=== PATIENT | male | born 1935 | race Caucasian/White ===

== ENCOUNTER 2016-05-30 20:51 | Emergency (ER) | payer MEDICARE ==
[2016-05-30] MEDS ORDERED: ASPIRIN 81 MG TABLET, CHEWABLE PO ONE (20:55)
[2016-05-30] MEDS ORDERED: LIDOCAINE 2% VISCOUS SOLN 20 ML UDCUP PO ONE (22:17)
[2016-05-30] MEDS ORDERED: FAMOTIDINE 20 MG TABLET PO ONE (22:17)
[2016-05-30] MEDS ORDERED: MAG HYDROX/AL HYDROX/SIMETH SUSP 30 ML UDCUP PO ONE (22:17)
--- NOTE | 2016-05-30 22:24 | ER Document Report ---
ED General - General Chief Complaint: Chest Pain Stated Complaint: CHEST PAIN Time seen by provider: 22:00 Mode of Arrival: Ambulatory Information source: Patient, Relative TRAVEL OUTSIDE OF THE [place] IN LAST 30 DAYS: No - HPI Notes: Patient is a pleasant 81-year-old white male presents to emergency department with report of chest pain onset at 1800 after eating at 1700, describing pain is a upper midepigastric discomfort to lower chest discomfort that somewhat radiated off to the left of gradual onset and worsening. The patient states he had an indigestion sensation associated with it, but denied any cough or belching. He reports no dyspnea or diaphoresis or radiation of the pain now the arm or up the neck or through to the back. No vomiting. The patient states he had a transient nausea earlier in the day that was without any associated chest pain. No fever or chills. History of coronary bypass surgery 2012 states that one year ago he had a cardiac catheterization at [facility] which was negative. Patient states no medication changes besides being placed upon amlodipine 10 days ago. Patient reports pain was a maximum 6 out of 10, now down to a 3 out of 10 on arrival. - Related Data Allergies/Adverse Reactions: Sulfa (Sulfonamide Antibiotics) Allergy (Verified 09/08/12 20:30) Past Medical History - Social History Smoking Status: Never Smoker Cigarette use (# per day): No Frequency of alcohol use: None Drug Abuse: None Lives with: Family Family History: Reviewed & Not Pertinent Patient has suicidal ideation: No Patient has homicidal ideation: No Renal/ Medical History: Denies: Hx Peritoneal Dialysis Review of Systems - Review of Systems Notes: REVIEW OF SYSTEMS: CONSTITUTIONAL : Denies fever, chills, or sweats. Denies recent illness. EENT: Denies eye, ear, throat, or mouth pain or symptoms. Denies nasal or sinus congestion or discharge. Denies throat, tongue, or mouth swelling or difficulty swallowing. CARDIOVASCULAR: Denies palpitations or racing or irregular heart beat. Denies ankle edema. RESPIRATORY: Denies cough, cold, or chest congestion. Denies shortness of breath, difficulty breathing, or wheezing. GASTROINTESTINAL: Denies abdominal pain or distention. Denies vomiting, or diarrhea. Denies blood in vomitus, stools, or per rectum. Denies black, tarry stools. Denies constipation. GENITOURINARY: Denies difficulty urinating, painful urination, burning, frequency, blood in urine, or discharge. MUSCULOSKELETAL: Denies back or neck pain or stiffness. Denies joint pain or swelling. SKIN: Denies rash, lesions or sores. HEMATOLOGIC : Denies easy bruising or bleeding. LYMPHATIC: Denies swollen, enlarged glands. NEUROLOGICAL: Denies confusion or altered mental status. Denies passing out or loss of consciousness. Denies dizziness or lightheadedness. Denies headache. Denies weakness or paralysis or loss of use of either side. Denies problems with gait or speech. Denies sensory loss, numbness, or tingling. Denies seizures. PSYCHIATRIC: Denies anxiety or stress. Denies depression, suicidal ideation, or homicidal ideation. ALL OTHER SYSTEMS REVIEWED AND NEGATIVE. Dictation was performed using [employer] voice recognition software Physical Exam - Vital signs Vitals: Temp Pulse Resp BP Pulse Ox 98.1 F 64 18 185/62 H 100 05/30/16 21:10 05/30/16 21:10 05/30/16 21:10 05/30/16 21:10 05/30/16 21:10 - Notes Notes: PHYSICAL EXAMINATION: GENERAL: Well-appearing, well-nourished and in no acute distress. HEAD: Atraumatic, normocephalic. EYES: Pupils equal round and reactive to light, extraocular movements intact, sclera anicteric, conjunctiva are normal. ENT: Nares patent, oropharynx clear without exudates. Moist mucous membranes. NECK: Normal range of motion, supple without lymphadenopathy LUNGS: Breath sounds clear to auscultation bilaterally and equal. No wheezes rales or rhonchi. HEART: Regular rate and rhythm without murmurs ABDOMEN: Soft, nondistended abdomen. No guarding, no rebound. No masses appreciated. Patient reports pain to the midepigastric region on palpation was some radiation through to the lower chest wall left greater than right. There is no bony deformity or crepitance or erythema. Negative Copeland's. Musculoskeletal: Normal range of motion, no pitting or edema. No cyanosis. NEUROLOGICAL: Cranial nerves grossly intact. Normal speech, normal gait. Normal sensory, motor exams PSYCH: Normal mood, normal affect. SKIN: Warm, Dry, normal turgor, no rashes or lesions noted. Course - Re-evaluation Re-evalutation: 05/31/16 07:58 Patient had initial and repeat troponin which were both negative. The patient was given GI cocktail and Pepcid with complete relief of his chest discomfort. There is no evidence for GI bleed, electrolyte imbalance, anemia. Patient denied any significant cough that would fit for pneumonia, but he did report his left-sided chest pain was somewhat pleuritic in nature. A d-dimer was ordered which was elevated. There is no evidence for congestive heart failure. CTA of the chest was ordered which showed no evidence of pulmonary embolus, but the patient did have a 2 cm mass versus scar in the right apex. There is no obvious evidence for pneumonia. There was also some esophageal thickening. Patient was instructed that he needed to follow-up with his regular practitioner for surveillance on the 2 cm mass and for upper endoscopy. I do not feel that the patient's chest pain is related to this mass, but I question esophagitis and/or reflux as a cause for the patient's chest pain. No obvious evidence for acute cardiac ischemia or acute MA. - Vital Signs Vital signs: Temp Pulse Resp BP Pulse Ox 98.1 F 64 21 H 153/58 H 96 05/30/16 23:22 05/30/16 23:22 05/31/16 06:01 05/31/16 06:17 05/31/16 06:16 - Laboratory Result Diagrams: 05/30/16 22:50 05/30/16 23:42 Laboratory results interpreted by me: 05/30/16 05/30/16 05/30/16 22:50 23:42 23:42 WBC 11.0 H Plt Count 148 L Monocytes % (Manual) 18 H Eosinophils % (Manual) 7 H Abs Monocytes (Manual) 2.0 H Absolute Eos (Manual) 0.8 H D-Dimer 1.85 H Potassium 3.4 L Chloride 108 H Glucose 128 H - EKG Interpretation by Ak EKG shows normal: Sinus rhythm Additional EKG results interpreted by ar: 05/30/16 22:22 EKG as interpreted by ar showed normal sinus rhythm a rate of 63. There is left ventricular hypertrophy. There is no gross evidence for acute MA or ischemia. There is a PVC identified. There is no significant change from previous EKG reviewed from 09/08/12. 05/30/16 22:24 Discharge - Discharge Clinical Impression: Esophagitis, Pulmonary mass Chest pain Qualifiers: Chest pain type: unspecified Qualified Code(s): R07.9 - Chest pain, unspecified Condition: Stable Disposition: HOME, SELF-CARE Instructions: Esophagitis ([facility]), Prilosec (Acid Pump Inhibitor) ([facility]) Additional Instructions: Chest Pain of Unclear Cause The exact cause of your chest pain isn't clear. Fortunately, there is no evidence of a dangerous medical condition. Further testing may be required to find the source of the pain. Most often, we find that this pain is coming from the chest wall -- the muscles or rib joints in the chest. But chest pain can come from the lung and lung lining, the esophagus, the heart valves or heart lining, and even the stomach or gallbladder. Rest. Eat lightly until the pain is gone. We may prescribe medicine for pain and inflammation. You should call the physician immediately if the pain radiates to the shoulder, jaw or arms; if you start to run a fever or develop a cough; or if you develop shortness of breath, or other new or alarming symptoms. Follow-up with Dr. Zhang concerning the esophageal thickening where you may need an upper endoscopy to evaluate. Also follow-up with him related to the 2 cm right apex pulmonary scar versus mass. Prescriptions: Omeprazole 20 mg PO DAILY #60 capsule. Referrals: CHRIS BISHOP MD [Primary Care Provider] - Follow up as needed
[2016-05-30 23:10] LABS: HEMOGLOBIN 13.6 g/dL (13.5-17.0); HGB HCT DIFFERENCE -0.2; MEAN CORPUSCULAR HEMOGLOBIN 30.6 pg (27.0-33.4); MEAN CORPUSCULAR HGB CONC 33.2 g/dL (32.0-36.0); MEAN CORPUSCULAR VOLUME 92 fl (80-97); RED BLOOD COUNT 4.45 10^6/uL (4.35-5.55); RED CELL DISTRIBUTION WIDTH 13.8 % (11.5-14.0)
[2016-05-30 23:52] LABS: BASOPHILS % (MANUAL) 1 % (0-2); EOSINOPHILS % (MANUAL) 7 % (0-6); LYMPHOCYTES % (MANUAL) 13 % (13-45); TOTAL CELLS COUNTED 100
[2016-05-30 23:53] LABS: PLATELET CLUMPS PRESENT; RBC MORPHOLOGY COMMENT NORMO-CYTIC/CHROMIC; TOXIC VACUOLATION PRESENT
[2016-05-31] LABS: ALANINE AMINOTRANSFERASE 33 U/L (21-72); ALBUMIN 3.9 g/dL (3.5-5.0); ALKALINE PHOSPHATASE 104 U/L (38-126); ASPARTATE AMINO TRANSFERASE 30 U/L (17-59); BILIRUBIN,DIRECT 0.1 mg/dL (0.0-0.4); BILIRUBIN,TOTAL 0.7 mg/dL (0.2-1.3); BLOOD UREA NITROGEN 20 mg/dL (7-20); CALCIUM 9.1 mg/dL (8.4-10.2); CREATINE KINASE 82 U/L (55-170); CREATININE RESULT 1.07 mg/dL (0.52-1.25); GLUCOSE 128 mg/dL (75-110); POTASSIUM 3.4 mmol/L (3.6-5.0); TOTAL PROTEIN 6.7 g/dL (6.3-8.2)
[2016-05-31 00:12] LABS: CREATINE KINASE MB 0.51 ng/mL (<4.55); TROPONIN I 0.015 ng/mL
[2016-05-31 00:16] LABS: ANION GAP 14 (5-19); CARBON DIOXIDE 23 mmol/L (22-30); CHLORIDE 108 mmol/L (98-107); SODIUM 144.8 mmol/L (137-145)
[2016-05-31 06:20] VITALS: BP 153/58
--- NOTE | 2016-05-31 15:42 | EKG REPORT ---
SEVERITY:- BORDERLINE ECG - SINUS RHYTHM VENTRICULAR PREMATURE COMPLEX LVH BY VOLTAGE : Confirmed by: Ashley Acharya MD 31-May-2016 15:41:33
== END 2016-05-31 06:20 | disposition home or self-care (01) ==
LOC: ER 20:51
DX: K20.9 Esophagitis, unspecified (principal); R91.8 Other nonspecific abnormal finding of lung field; I51.7 Cardiomegaly; R10.13 Epigastric pain; I49.3 Ventricular premature depolarization; Z98.84 Bariatric surgery status; Z79.899 Other long term (current) drug therapy; Z88.2 Allergy status to sulfonamides
CPT/HCPCS: 93005; 99285; 36415; 82553; 82550; 85025; 80053; 84484; 85379; 71010; 71275; 93010; A9270 ×2; J3490

== ENCOUNTER → 2016-12-14 | Outpatient (CLI) | payer MEDICARE ==
[2016-12-14 11:27] LABS: ANION GAP 13 (5-19); BLOOD UREA NITROGEN 21 mg/dL (7-20); CALCIUM 9.2 mg/dL (8.4-10.2); CARBON DIOXIDE 25 mmol/L (22-30); CHLORIDE 105 mmol/L (98-107); CREATININE RESULT 1.19 mg/dL (0.52-1.25); GLUCOSE 204 mg/dL (75-110); POTASSIUM 4.3 mmol/L (3.6-5.0); SODIUM 143.2 mmol/L (137-145)
== END ==
LOC: OD 09:37
PROVIDERS: ATTEND Physician Assistant
DX: N28.9 Disorder of kidney and ureter, unspecified (principal)
CPT/HCPCS: 36415; 80048

== ENCOUNTER 2017-01-12 15:08 | Emergency (ER) | payer MEDICARE ==
--- NOTE | 2017-01-12 15:46 | ER Document Report ---
ED Medical Screen (RME) - General Chief Complaint: Vision Problem Stated Complaint: EYE INJURY Time Seen by Provider: 01/12/17 15:43 Mode of Arrival: Ambulatory Information source: Patient TRAVEL OUTSIDE OF THE [place] IN LAST 30 DAYS: No - HPI Patient complains to provider of: Decreased vision R eye Onset: Just prior to arrival - pt states he woke up with no issues. A short time ago today, he felt "like a curtain was coming down over his R eye." He says it has remained about the same and is painless. - Related Data Allergies/Adverse Reactions: Sulfa (Sulfonamide Antibiotics) Allergy (Verified 01/12/17 15:24) Past Medical History - Social History Chew tobacco use (# tins/day): No Frequency of alcohol use: None Drug Abuse: None - Past Medical History Cardiac Medical History: Reports: Hx Hypertension Renal/ Medical History: Denies: Hx Peritoneal Dialysis Past Surgical History: Reports: Hx Cardiac Surgery Physical Exam - Vital signs Vitals: Temp Pulse Resp BP Pulse Ox 97.6 F 63 16 157/48 H 95 01/12/17 15:23 01/12/17 15:23 01/12/17 15:23 01/12/17 15:23 01/12/17 15:23 Course - Vital Signs Vital signs: Temp Pulse Resp BP Pulse Ox 97.6 F 63 16 157/48 H 95 01/12/17 15:23 01/12/17 15:23 01/12/17 15:23 01/12/17 15:23 01/12/17 15:23
--- NOTE | 2017-01-12 16:21 | RADIOLOGY REPORT (SQ) ---
EXAM DESCRIPTION: CT HEAD WITHOUT COMPLETED DATE/TIME: 01/12/2017 4:09 pm REASON FOR STUDY: R eye vision decrease COMPARISON: None. TECHNIQUE: Axial images acquired through the brain without intravenous contrast. Images reviewed wi th bone, brain and subdural windows. Images stored on PACS. All CT scanners at this facility use dose modulation, iterative reconstruction, and/or weight based d osing when appropriate to reduce radiation dose to as low as reasonably achievable (ALARA). [facility]: Dose Right [facility]: CareDose [facility]: Dose Right [facility]: Teradose 4D [facility]: [employer] RADIATION DOSE: Up-to-date CT equipment and radiation dose reduction techniques were employed. CTDIv ol: 62.8 mGy. DLP: 1163 mGy-cm. mGy. LIMITATIONS: None. FINDINGS: VENTRICLES: Prominent. CEREBRUM: No masses. No hemorrhage. No midline shift. Areas of low density in the white matter mos t likely due to chronic micro-vascular ischemic change. No evidence for acute infarction. CEREBELLUM: No masses. No hemorrhage. No alteration of density. No evidence for acute infarction. EXTRAAXIAL SPACES: Mild age-related involutional change. No fluid collections. No masses. ORBITS AND GLOBE: No intra- or extraconal masses. Normal contour of globe without masses. CALVARIUM: No fracture. PARANASAL SINUSES: No fluid or mucosal thickening. SOFT TISSUES: No mass or hematoma. OTHER: No other significant finding. IMPRESSION: MILD CHRONIC CHANGES OF ATROPHY AND MICROVASCULAR ISCHEMIA. NO ACUTE PROCESS. EVIDENCE OF ACUTE STROKE: NO. TECHNICAL DOCUMENTATION: JOB ID: [id number] Quality ID # [id number]: Final reports with documentation of one or more dose reduction techniques (e.g., Au tomated exposure control, adjustment of the mA and/or kV according to patient size, use of iterative reconstruction technique) 2010 [employer]- All Rights Reserved
--- NOTE | 2017-01-12 19:02 | ER Document Report ---
ED General <NIKKOKARINA - Last Filed: 01/12/17 19:02> - General Mode of Arrival: Ambulatory TRAVEL OUTSIDE OF THE [place] IN LAST 30 DAYS: No <DANIEL ELLIS - Last Filed: 01/12/17 19:36> - General Chief Complaint: Vision Problem Stated Complaint: EYE INJURY Time Seen by Provider: 01/12/17 15:43 Notes: Patient is a 81 year old male with a history of hypertension presents to the emergency department complaining of blurriness in his right eye onset 10 am. Patient states that the upper half of his visual field in his right eye is blurry. Patient relative states the patients blurry vision was purple and orange. At bedside patient states that his vision is better but still blurry. Patient states he has no pain in his right eye. (DANIEL ELLIS) - Related Data Allergies/Adverse Reactions: Sulfa (Sulfonamide Antibiotics) Allergy (Verified 01/12/17 15:24) Past Medical History - General Information source: Patient - Social History Smoking Status: Never Smoker Chew tobacco use (# tins/day): No Frequency of alcohol use: None Drug Abuse: None Family History: Reviewed & Not Pertinent Patient has suicidal ideation: No Patient has homicidal ideation: No - Past Medical History Cardiac Medical History: Reports: Hx Hypertension Renal/ Medical History: Denies: Hx Peritoneal Dialysis Past Surgical History: Reports: Hx Cardiac Surgery <DANIEL ELLIS - Last Filed: 01/12/17 19:36> Review of Systems - Review of Systems Constitutional: No symptoms reported EENT: See HPI, Blurred vision Cardiovascular: No symptoms reported Respiratory: No symptoms reported Gastrointestinal: No symptoms reported Genitourinary: No symptoms reported Male Genitourinary: No symptoms reported Musculoskeletal: No symptoms reported Skin: No symptoms reported Hematologic/Lymphatic: No symptoms reported Neurological/Psychological: No symptoms reported -: Yes All other systems reviewed and negative <DANIEL ELLIS - Last Filed: 01/12/17 19:36> Physical Exam - HEENT Head: Normocephalic, Atraumatic Eyes: Other - In the middle of right non-dilated eye, there is a darked area. Visual acuity- Right eye: 20/20 Visual acuity- Left eye: 20/30 Visual acuity- Both eyes: 20/20 Corrective lenses worn: No - Respiratory Respiratory status: No respiratory distress - Cardiovascular Rhythm: Regular - Back Back: Normal - Extremities General upper extremity: Normal inspection General lower extremity: Normal inspection - Neurological Neuro grossly intact: Yes Cognition: Normal Orientation: AAOx4 Sebastian Coma Scale Eye Opening: Spontaneous Jhoana Coma Scale Verbal: Oriented Sebastian Coma Scale Motor: Obeys Commands Sebastian Coma Scale Total: 15 Speech: Normal - Psychological Associated symptoms: Normal affect, Normal mood - Skin Skin Temperature: Warm Skin Moisture: Dry <DANIEL ELLIS - Last Filed: 01/12/17 19:36> - Vital signs Vitals: Temp Pulse Resp BP Pulse Ox 97.6 F 63 16 157/48 H 95 01/12/17 15:23 01/12/17 15:23 01/12/17 15:23 01/12/17 15:23 01/12/17 15:23 Course - Consults Dr. Turpin Time consulted: 19:02 Consulted provider: follow-up in office - He will see in his office right now, as soon as the patient can get there. <KARINA EL - Last Filed: 01/12/17 19:02> - Vital Signs Vital signs: Temp Pulse Resp BP Pulse Ox 98 F 70 15 142/75 H 98 01/12/17 19:10 01/12/17 19:10 01/12/17 19:10 01/12/17 19:10 01/12/17 19:10 Discharge <KARINA EL - Last Filed: 01/12/17 19:02> <DANIEL ELLIS - Last Filed: 01/12/17 19:36> - Discharge Clinical Impression: Visual field loss Condition: Stable Disposition: HOME, SELF-CARE Additional Instructions: Go to see Dr. Turpin in his office now. Referrals: CHRIS BISHOP MD [Primary Care Provider] - Follow up as needed KYREE TURPIN DO [ACTIVE STAFF] - 01/12/17 Scribe Attestation: 01/12/17 19:03 I personally performed the services described in the documentation, reviewed and edited the documentation which was dictated to the scribe in my presence, and it accurately records my words and actions. (KARINA EL) Scribe Documentation - Scribe Written by Scribe:: Olivia Moore, 01/12/2017 19:35 acting as scribe for :: Nikko <DANIEL ELLIS - Last Filed: 01/12/17 19:36>
[2017-01-12 19:10] VITALS: BP 142/75
== END 2017-01-12 19:10 | disposition home or self-care (01) ==
LOC: ER 15:08
DX: H53.8 Other visual disturbances (principal); I10 Essential (primary) hypertension; Z88.2 Allergy status to sulfonamides
CPT/HCPCS: 70450; 99284

== ENCOUNTER 2020-03-02 07:59 | Day surgery (SDC) | payer MEDICARE, BC ==
[2020-03-02] MEDS ORDERED: DIPHENHYDRAMINE HCL 50 MG/ML VIAL IV PRN (08:11)
[2020-03-02] MEDS ORDERED: PROMETHAZINE HCL INJ 25 MG/1 ML VIAL IV PRN (08:11)
[2020-03-02] MEDS ORDERED: ONDANSETRON HCL INJ/PF 4 MG/2 ML SDV IV PRN (08:11)
[2020-03-02] MEDS ORDERED: PROPOFOL INJ 200 MG/20 ML VIAL IV ONE (08:49)
--- NOTE | 2020-03-02 09:48 | Operative Report ---
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 Same as above. 2. Large mass lesion at approximately 9 cm from the dentate line, in the rectum. OPERATION: Flexible sigmoidoscopy with biopsy SURGEON: WAQAR DORSEY ANESTHESIA: LMAC TISSUE REMOVED OR ALTERED: Multiple biopsies in the rectum, at 9 cm area of stricture COMPLICATIONS: none apparent ESTIMATED BLOOD LOSS: minimal PROCEDURE: Procedure in detail: After informed consent was obtained, the patient was brought to the operating room and laid in the left lateral decubitus position. The endoscope was inserted into the rectum. It was passed up the rectum to approximately 9 cm, where a large, circumferential strictured area was identified. There was a small area of ulceration, however the mucosa appeared relatively normal. Multiple biopsies were taken in and around the ulcerated area. The strictured area was passed with the scope, up to approximately 30 cm. At 30 cm, due to flexing of the scope, no further examination could be performed. The scope was then withdrawn, circumferentially noting the mucosa. The area above and below the strictured area appeared normal. The biopsied area was again surveyed, and found to be free of any active bleeding. The scope was then withdrawn from the anus, and the procedure was concluded. All sponge, instrument, and needle counts were correct x2. Condition: Fair.
--- NOTE | 2020-03-02 09:50 | Discharge Summary ---
Discharge Summary (SDC) - Discharge Final Diagnosis: metastatic lesions of unknown origin. mass lesion of the rectum Date of Surgery: 03/02/20 Discharge Date: 03/02/20 Treatment or Instructions: d/c home. diet as tolerated. Activity: nonstrenuous. F/u 7-10 days. Referrals: CHRIS BISHOP MD [Primary Care Provider] - Discharge Diet: As Tolerated Respiratory Treatments at Home: Deep Breathing/Coughing, Incentive Spirometer Discharge Activity: Activity As Tolerated Home Care Assistance: None Needed Report the Following to Your Physician Immediately: Shortness of Breath, Nausea, Vomiting, Increase in Pain, Fever over 101 Degrees, Unusual Bleeding
[2020-03-02 10:36] VITALS: BP 148/66
== END 2020-03-02 10:37 | disposition home or self-care (01) ==
LOC: END 07:59 → OROUT 10:37
PROVIDERS: ATTEND Surgery
DX: K62.89 Other specified diseases of anus and rectum (principal); K63.3 Ulcer of intestine; C79.9 Secondary malignant neoplasm of unspecified site; Z01.812 Encounter for preprocedural laboratory examination; Z20.828 Contact with and (suspected) exposure to other viral communicable diseases; N40.1 Benign prostatic hyperplasia with lower urinary tract symptoms; R39.11 Hesitancy of micturition; I48.20 Chronic atrial fibrillation, unspecified; I70.90 Unspecified atherosclerosis; N43.3 Hydrocele, unspecified; I20.8 Other forms of angina pectoris; Z86.73 Personal history of transient ischemic attack (TIA), and cerebral infarction without residual deficits; Z79.899 Other long term (current) drug therapy; Z79.02 Long term (current) use of antithrombotics/antiplatelets; I25.2 Old myocardial infarction; Z87.891 Personal history of nicotine dependence; Z95.1 Presence of aortocoronary bypass graft; Z95.0 Presence of cardiac pacemaker
CPT/HCPCS: 45380; 88305 ×2; 00811; U0003; J2704; C9803; 811; 812; 87635

== ENCOUNTER → 2020-03-15 | Outpatient (CLI) | payer MEDICARE, BC ==
--- NOTE | 2020-03-15 12:35 | RADIOLOGY REPORT (SQ) ---
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 0 ml; Total Saline Delivered: 65.0 ml RENAL FUNCTION: Not recorded here. Refer to the patient's chart. COMPARISON: 05/31/2016 TECHNIQUE: CT scan of the chest performed using helical scanning technique with dynamic intravenous contrast injection. Images reviewed with lung, soft tissue and bone windows. Reconstructed coronal a nd sagittal MPR images reviewed. All images stored on PACS. All CT scanners at this facility use dose modulation, iterative reconstruction, and/or weight based d osing when appropriate to reduce radiation dose to as low as reasonably achievable (ALARA). [facility]: Dose Right [facility]: CareDose [facility]: Dose Right [facility]: Teradose 4D [facility]: [employer] RADIATION DOSE: CT Rad equipment meets quality standard of care and radiation dose reduction techniq ues were employed. CTDIvol: 4.5 - 4.6 mGy. DLP: 631 mGy-cm. . LIMITATIONS: None. FINDINGS: AXILLAE: No adenopathy. CHEST WALL: No masses. No subcutaneous air. LUNGS: Moderate pulmonary fibrosis is seen. This is most prominent in the lingula but also seen in t he lower lobes. These findings are more advanced than on the earlier study. PLEURA: Noncalcified pleural masses are seen extensively in the right hemithorax. The findings repre sent a change from the prior study. A pleural-based mass seen on the earlier study in the right uppe r chest is larger, measuring 22.7 mm. Multiple additional pleural lesions are seen. Most prominent is seen anteriorly on image 42 and measures 31.7 x 20.2 mm. THYROID: No masses or significant asymmetry. HILAR AND MEDIASTINAL STRUCTURES: There are some nonspecific mediastinal nodes. AORTA AND GREAT VESSELS: No aneurysm. No dissection. PULMONARY ARTERIES: No identified pulmonary emboli. Study not optimized for the pulmonary arteries. HEART: No pericardial effusion. HARDWARE AND LIFELINES: Pacemaker. Sternotomy wires. BONES: No significant finding. OTHER: No other significant finding. IMPRESSION: 1. Significantly increased pleural disease. Consider biopsy (the lesions seen anterior ly on image 42 would be readily accessible). Consider PET-CT. 2. Chronic pulmonary findings as described. COMPARISON: 08/30/2015 RADIATION DOSE: CT Rad equipment meets quality standard of care and radiation dose reduction techniq ues were employed. CTDIvol: 4.5 - 4.6 mGy. DLP: 631 mGy-cm. mGy. TECHNIQUE: CT scan of the abdomen and pelvis performed with intravenous and oral contrast using josemanuel jorge scanning technique with dynamic intravenous contrast injection. Images reviewed with lung, soft tissue and bone windows. Reconstructed coronal and sagittal MPR images reviewed. Delayed images for evaluation of the urinary system also acquired and evaluated. All images stored on PACS. All CT scanners at this facility use dose modulation, iterative reconstruction, and/or weight based d osing when appropriate to reduce radiation dose to as low as reasonably achievable (ALARA). [facility]: Dose Right [facility]: [employer] [facility]: Dose Right [facility]: Teradose 4D [facility]: [employer] FINDINGS: LIVER: There are some ill-defined low-density lesions. A 2 cm lesion is seen in the left lobe on image 10. On the same image a small cluster of lesions is seen in the right lobe posteriorly . SPLEEN: Normal size. No focal lesions. PANCREAS: No masses. No significant calcifications. No adjacent inflammation or peripancreatic flui d collections. Pancreatic duct not dilated. GALLBLADDER: There appear to be a couple tiny gallstones on image 21. ADRENAL GLANDS: No significant masses or asymmetry. RIGHT KIDNEY AND URETER: No solid masses. No significant calcifications. No hydronephrosis or hyd roureter. LEFT KIDNEY AND URETER: No solid masses. No significant calcifications. No hydronephrosis or hydr oureter. AORTA AND VESSELS: No aneurysm. No dissection. Renal arteries, SMA, celiac without stenosis. RETROPERITONEUM: No retroperitoneal adenopathy, hemorrhage or masses. LARGE AND SMALL BOWEL: There is retained stool. 80 26 mm slightly irregular mass lies adjacent to re ctum on image 62. On the same image on the right side of the rectum there is a 32.7 by 26.1 mm mass. APPENDIX: Not identified. ABDOMINAL WALL: No hernia or masses. PERITONEAL CAVITY: No free air. No free fluid. No peritoneal implants or masses. PELVIS: The bladder is incompletely filled but otherwise unremarkable. The 2 rectal/ perirectal mass es are described above. BONES: No significant or acute findings. OTHER: No other significant finding. IMPRESSION: 1. There are some ill-defined low-density lesions in the liver as described. Cannot ex clude metastases. 2. There are 2 rectal/perirectal masses. Consider PET-CT. TECHNICAL DOCUMENTATION: JOB ID: [id number] Quality ID # [id number]: Final reports with documentation of one or more dose reduction techniques (e.g., Au tomated exposure control, adjustment of the mA and/or kV according to patient size, use of iterative reconstruction technique) 2010 [employer]- All Rights Reserved Reading location - IP/workstation name: [email or web address]
--- NOTE | 2020-03-15 15:40 | RADIOLOGY REPORT (SQ) ---
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 The route of agent administration: Intravenous. ADDITIONAL DRUGS AND DOSES: None. TECHNIQUE: Routine delayed images at 4 hours post radionuclide injection acquired of the bony skelet on including anterior and posterior whole-body projections and additional focused images as needed. LIMITATIONS: None. FINDINGS: BONES: Normal visualization without areas of photopenia or increased bony uptake of radiop harmaceutical. KIDNEYS: Symmetric excretion without obstruction. OTHER: No other significant finding. IMPRESSION: No evidence of osseous metastases. COMMENT: Quality measure 147: Current bone scan is compared with any available plain radiographs, p rior bone scans, and CT/MRI. TECHNICAL DOCUMENTATION: JOB ID: [id number] 2010 [employer]- All Rights Reserved Reading location - IP/workstation name: [email or web address]
== END ==
LOC: RAD 10:11
PROVIDERS: ATTEND Internal Medicine
DX: C61 Malignant neoplasm of prostate (principal); K76.9 Liver disease, unspecified; K62.89 Other specified diseases of anus and rectum
CPT/HCPCS: 82565; 78306; 71260; 74177; A9503; Q9969